=== PATIENT | female | born 1940 | race Caucasian/White ===

== ENCOUNTER 2020-07-04 16:15 | Emergency (ER) | payer OTHER ==
[2020-07-04 16:33] VITALS: BMI 29.2
[2020-07-04] MEDS ORDERED: BAMLANIVIMAB 700 MG in SODIUM CHLORIDE 250 ML IVPB ONE (16:36)
[2020-07-04 17:07] LABS: HEMATOCRIT 40.8 % (32.4-45.2); HEMOGLOBIN 13.7 GM/dL (10.7-15.3); MCH 31.3 pg (25.7-33.7); MCHC 33.6 g/dl (32.0-36.0); MEAN CELL VOLUME 93.1 fl (80-96); PLATELET COUNT 209 K/MM3 (134-434); RBC 4.38 M/mm3 (3.60-5.2); RDW 13.1 % (11.6-15.6); WHITE BLOOD COUNT 6.4 K/mm3 (4.0-10.0)
[2020-07-04 17:37] LABS: POTASSIUM 3.6 mmol/L (3.5-5.1)
[2020-07-04 17:38] LABS: CALCIUM 9.3 mg/dL (8.5-10.1)
[2020-07-04 17:39] LABS: BLOOD UREA NITROGEN 25.2 mg/dL (7-18)
[2020-07-04 17:42] LABS: CREATININE 1.1 mg/dL (0.55-1.3)
[2020-07-04] MEDS ORDERED: SODIUM CHLORIDE 0.9% 500 ML INFUS.BAG IV ONE (18:12)
[2020-07-04 20:23] VITALS: BP 119/64; PULSE 76; TEMP 100.3
== END 2020-07-04 21:30 | disposition home or self-care (01) ==
LOC: JER 16:15
DX: U07.1 COVID-19 (principal)
CPT/HCPCS: 36415; 80048; 85027; 99285-25; M0239; Q0239

== ENCOUNTER 2022-07-24 22:15 | Inpatient (IN) | payer OTHER ==
[2022-07-24] MEDS ORDERED: SODIUM CHLORIDE 1,000 ML IV ONE ×2 (22:26→22:51)
[2022-07-24] MEDS ORDERED: morphine CARPU-JECT 2 MG/1 ML DISP.SYRIN IVPUSH ONE (22:26)
[2022-07-24 22:43] VITALS: BMI 31.2
[2022-07-24 22:47] LABS: HEMATOCRIT 39.5 % (32.4-45.2); HEMOGLOBIN 13.6 G/dL (10.7-15.3); MCH 31.9 pg (25.7-33.7); MCHC 34.4 g/dl (32.0-36.0); MEAN CELL VOLUME 92.9 fl (80-96); MEAN PLT VOLUME 7.4 fl (7.5-11.1); PLATELET COUNT 262.7 10^3/uL (134-434); RBC 4.25 10^6/uL (3.60-5.2); WHITE BLOOD COUNT 13.2 10^3/uL (4.0-10.8)
[2022-07-24] MEDS ORDERED: morphine SULFATE 4 MG/ML VIAL ONE (22:50)
[2022-07-24 23:04] LABS: ALBUMIN 4.3 g/dl (3.4-5.0); BILIRUBIN,TOTAL 0.7 mg/dl (0.2-1); CALCIUM 9.6 mg/dl (8.5-10); CREATININE 1.1 mg/dl (0.55-1.3); TOT PROT 8.2 g/dl (6.4-8.2)
[2022-07-24 23:07] LABS: EPITHELIAL CELLS FEW /hpf
[2022-07-25] MEDS ORDERED: morphine CARPU-JECT 4 MG/1 ML DISP.SYRIN IVPUSH ONE (00:57)
[2022-07-25] MEDS ORDERED: morphine SULFATE 4 MG/ML VIAL ONE (00:57)
[2022-07-25] MEDS ORDERED: ACETAMINOPHEN 1000 MG/100 ML BAG IVPB PRN (03:05)
[2022-07-25] MEDS: SODIUM CHLORIDE 1,000 ML IV SCH (07:37)
[2022-07-25] MEDS: INSULIN SLIDING SCALE (NOVOLOG) 1 VIAL SQ SCH ×4 (07:38→22:41)
[2022-07-25] MEDS ORDERED: PIPERACILLIN/TAZOB 3.375 GM 3.375 GM in DEXTROSE 5%-WATER - 50 ML IVPB ONE (17:22)
[2022-07-25] MEDS ORDERED: INSULIN (NOVOLOG) ASPART 100 UNITS/ML 10ML VIAL ONE (22:08)
[2022-07-26] MEDS: INSULIN SLIDING SCALE (NOVOLOG) 1 VIAL SQ SCH ×4 (03:17→22:51)
[2022-07-26] MEDS: SODIUM CHLORIDE 1,000 ML IV SCH (04:17)
[2022-07-26 09:00] LABS: BASO % 0.9 % (0-2.0); EOS % 4.4 % (0-4.5); HEMATOCRIT 34.8 % (32.4-45.2); HEMOGLOBIN 11.6 GM/dL (10.7-15.3); LYMPH % 27.1 % (8-40); MCH 30.2 pg (25.7-33.7); MCHC 33.4 g/dl (32.0-36.0); MEAN CELL VOLUME 90.5 fl (80-96); MEAN PLT VOLUME 7.4 fl (7.5-11.1); MONO % 9.2 % (3.8-10.2); NEUT % 58.4 % (42.8-82.8); PLATELET COUNT 237 10^3/uL (134-434); RBC 3.85 M/mm3 (3.60-5.2); RDW 13.4 % (11.6-15.6); WHITE BLOOD COUNT 6.2 K/mm3 (4.0-10.0)
[2022-07-26 09:10] LABS: INR 1.16 (0.83-1.09); PROTHROMBIN TIME (PATIENT) 13.4 SEC (9.7-13.0)
[2022-07-26 09:13] LABS: ACTIVATED PTT 27.1 SECONDS (25.2-36.5)
[2022-07-26 10:04] LABS: BLOOD UREA NITROGEN 17.1 mg/dL (7-18); CALCIUM 9.2 mg/dL (8.5-10.1); MAGNESIUM 1.7 mg/dL (1.8-2.4)
[2022-07-26 10:07] LABS: PHOSPHOROUS 2.6 mg/dL (2.5-4.9)
[2022-07-26 10:10] LABS: CREATININE 0.9 mg/dL (0.55-1.3)
[2022-07-26] MEDS ORDERED: MAGNESIUM SULF 50% (8.12 MEQ/2 ML-1 GM VIAL) IVPB ONE (12:03)
[2022-07-26] MEDS ORDERED: ACETAMINOPHEN 500 MG TABLET (FP) PO PRN (13:45)
[2022-07-26] MEDS ORDERED: INSULIN (NOVOLOG) ASPART 100 UNITS/ML 10ML VIAL ONE (22:09)
[2022-07-27] MEDS: INSULIN SLIDING SCALE (NOVOLOG) 1 VIAL SQ SCH ×3 (04:01→12:25)
[2022-07-27 08:03] LABS: BASO % 0.9 % (0-2.0); EOS % 5.8 % (0-4.5); HEMOGLOBIN 12.1 GM/dL (10.7-15.3); MCH 31.1 pg (25.7-33.7); MCHC 33.7 g/dl (32.0-36.0); MEAN CELL VOLUME 92.2 fl (80-96); MEAN PLT VOLUME 7.3 fl (7.5-11.1); MONO % 9.3 % (3.8-10.2); PLATELET COUNT 266 10^3/uL (134-434); RDW 12.9 % (11.6-15.6); WHITE BLOOD COUNT 6.3 K/mm3 (4.0-10.0)
[2022-07-27 08:21] LABS: ALBUMIN 3.6 g/dl (3.4-5.0); BLOOD UREA NITROGEN 11.6 mg/dL (7-18)
[2022-07-27 08:22] LABS: BILIRUBIN,TOTAL 0.7 mg/dL (0.2-1)
[2022-07-27 08:23] LABS: CALCIUM 9.4 mg/dL (8.5-10.1); TOT PROT 7.1 g/dl (6.4-8.2)
[2022-07-27 08:24] LABS: CREATININE 0.9 mg/dL (0.55-1.3)
[2022-07-27] MEDS: SODIUM CHLORIDE 1,000 ML IV SCH ×2 (10:11)
[2022-07-27 10:33] VITALS: TEMP 98
[2022-07-27 11:18] VITALS: BP 139/67; PULSE 73; RESP 20
== END 2022-07-27 13:29 | disposition home or self-care (01) | DRG 389 ==
LOC: FER 22:15 → J8W 07-25 05:25
PROVIDERS: ADMIT Internal Medicine; ATTEND Family Medicine
DX: K56.609 Unspecified intestinal obstruction, unspecified as to partial versus complete obstruction (principal); K43.0 Incisional hernia with obstruction, without gangrene; E11.9 Type 2 diabetes mellitus without complications; I10 Essential (primary) hypertension; I25.10 Atherosclerotic heart disease of native coronary artery without angina pectoris; D72.829 Elevated white blood cell count, unspecified; E78.00 Pure hypercholesterolemia, unspecified; I48.91 Unspecified atrial fibrillation; E66.8 Other obesity; Z68.30 Body mass index [BMI] 30.0-30.9, adult; Z96.651 Presence of right artificial knee joint; Z86.010 Personal history of colon polyps; Z85.3 Personal history of malignant neoplasm of breast
CPT/HCPCS: 0241U-QW; 36415; 71045-TC-FY; 74019-TC-FY; 74177-TC; 80048; 80053; 81003; 81015; 82962; 83735; 84100; 85025; 85027; 85610; 85730; 87081; 87086; 93005; 99285-25; Q9967

== ENCOUNTER 2023-01-31 22:35 | Inpatient (IN) | payer OTHER ==
[2023-01-31] MEDS ORDERED: ACETAMINOPHEN 1000 MG/100 ML BAG IVPB ONE (23:16)
[2023-01-31] MEDS ORDERED: SODIUM CHLORIDE 0.9% 500 ML INFUS.BAG IV ONE (23:16)
[2023-02-01] MEDS ORDERED: ACETAMINOPHEN INJECTION 100 ML IVPB ONE (00:26)
[2023-02-01 01:37] LABS: INR 1.17 (0.83-1.09); PROTHROMBIN TIME (PATIENT) 13.6 SEC (9.7-13.0)
[2023-02-01 01:38] LABS: POTASSIUM 4.7 mmol/L (3.5-5.1)
[2023-02-01 01:39] LABS: ACTIVATED PTT 29.8 SECONDS (25.2-36.5)
[2023-02-01 01:40] LABS: BLOOD UREA NITROGEN 32.3 mg/dL (7-18); CALCIUM 9.6 mg/dL (8.5-10.1)
[2023-02-01 01:44] LABS: CREATININE 1.2 mg/dL (0.55-1.3)
[2023-02-01 01:46] LABS: BILIRUBIN,TOTAL 0.4 mg/dL (0.2-1); TOT PROT 8.4 g/dl (6.4-8.2)
[2023-02-01 02:14] LABS: HEMATOCRIT 38.9 % (32.4-45.2); MCH 29.9 pg (25.7-33.7); MCHC 33.5 g/dl (32.0-36.0); MEAN CELL VOLUME 89.4 fl (80-96); MEAN PLT VOLUME 7.9 fl (7.5-11.1); PLATELET COUNT 276 10^3/uL (134-434); RBC 4.36 M/mm3 (3.60-5.2); RDW 13.5 % (11.6-15.6)
[2023-02-01] MEDS ORDERED: morphine CARPU-JECT 4 MG/1 ML DISP.SYRIN IVPUSH ONE (05:03)
[2023-02-01] MEDS ORDERED: morphine SULFATE 4 MG/ML VIAL ONE (05:24)
[2023-02-01] MEDS: DEXTROSE 5%-NORMAL SALINE 1,000 ML IV SCH (05:25)
[2023-02-01 05:48] VITALS: BMI 32.5
[2023-02-01 06:49] LABS: EPI CELLS 4 /uL (0-25.1); HYALINE CASTS 0 /uL (0-3.1); PH,URINE 5.5 (5.0-8.0); URINE APPEARANCE CLEAR; URINE BACTERIA 19 /uL (0-1359); URINE BILIRUBIN NEGATIVE (NEGATIVE); URINE COLOR YELLOW; URINE GLUCOSE (UA) NEGATIVE (NEGATIVE); URINE KETONE NEGATIVE (NEGATIVE); URINE LEUK ESTERASE NEGATIVE (NEGATIVE); URINE NITRITE NEGATIVE (NEGATIVE); URINE PROTEIN 1+ (NEGATIVE); URINE RBC 11 /uL (0-23.9); URINE UROBILINOGEN 0.2 mg/dL (0.2-1.0); URINE WBC 7 /uL (0-25.8)
[2023-02-01 08:27] LABS: BLOOD UREA NITROGEN 26.6 mg/dl (7-18); CALCIUM 9.5 mg/dl (8.5-10.1); POTASSIUM 3.9 mmol/L (3.5-5.1)
[2023-02-01] MEDS ORDERED: KETOROLAC TROMETHAMINE 15 MG/ML VIAL IVPUSH PRN (09:58)
[2023-02-01 10:24] LABS: BASO % 0.3 % (0-2.0); EOS % 0.2 % (0-4.5); HEMOGLOBIN 13.1 GM/dL (10.7-15.3); LYMPH % 11.1 % (8-40); MCH 30.5 pg (25.7-33.7); MCHC 33.7 g/dl (32.0-36.0); MEAN CELL VOLUME 90.4 fl (80-96); MEAN PLT VOLUME 7.7 fl (7.5-11.1); NEUT % 82.4 % (42.8-82.8); PLATELET COUNT 259 10^3/uL (134-434); RBC 4.31 M/mm3 (3.60-5.2); RDW 13.5 % (11.6-15.6); WHITE BLOOD COUNT 15.5 K/mm3 (4.0-10.0)
[2023-02-01] MEDS: PANTOPRAZOLE SODIUM 40 MG VIAL IVPUSH SCH (11:00)
[2023-02-01] MEDS: INSULIN SLIDING SCALE (NOVOLOG) 1 VIAL SQ SCH ×3 (11:15→21:48)
[2023-02-01] MEDS: ACETAMINOPHEN 1000 MG/100 ML BAG IVPB PRN (18:54)
[2023-02-02] MEDS: DEXTROSE 5%-NORMAL SALINE 1,000 ML IV SCH (06:14)
[2023-02-02] MEDS: INSULIN SLIDING SCALE (NOVOLOG) 1 VIAL SQ SCH ×3 (06:35→17:21)
[2023-02-02 09:21] LABS: ALBUMIN 3.8 g/dl (3.4-5.0); CALCIUM 9.1 mg/dl (8.5-10.1); CREATININE 1.3 mg/dl (0.6-1.3); SGOT/AST 21.5 U/L (15-37); SGPT/ALT 10.6 U/L (7-52); TOT PROT 6.5 g/dl (6.4-8.2)
[2023-02-02 09:24] LABS: BASO % 0.5 % (0-2.0); HEMATOCRIT 35.4 % (32.4-45.2); HEMOGLOBIN 12.1 GM/dL (10.7-15.3); LYMPH % 25.8 % (8-40); MCH 30.9 pg (25.7-33.7); MCHC 34.2 g/dl (32.0-36.0); MEAN CELL VOLUME 90.2 fl (80-96); MEAN PLT VOLUME 7.4 fl (7.5-11.1); MONO % 8.6 % (3.8-10.2); NEUT % 62.1 % (42.8-82.8); PLATELET COUNT 233 10^3/uL (134-434); RBC 3.93 M/mm3 (3.60-5.2); RDW 13.1 % (11.6-15.6); WHITE BLOOD COUNT 7.8 K/mm3 (4.0-10.0)
[2023-02-02] MEDS: PANTOPRAZOLE SODIUM 40 MG VIAL IVPUSH SCH (10:12)
[2023-02-02] MEDS: ACETAMINOPHEN 1000 MG/100 ML BAG IVPB PRN (10:28)
[2023-02-02] MEDS ORDERED: DEXTROSE 5%-LACTATED RINGERS 1,000 ML IV SCH ×2 (10:45)
[2023-02-02 10:55] LABS: BILIRUBIN,TOTAL 0.9 mg/dL (0.2-1)
[2023-02-02 14:55] VITALS: BP 153/69; PULSE 68; RESP 18; TEMP 98.8
== END 2023-02-02 19:12 | disposition home or self-care (01) | DRG 390 ==
LOC: FER 22:35 → FM/S 02-01 04:57
PROVIDERS: ADMIT Family Medicine; ATTEND Family Medicine
DX: K56.609 Unspecified intestinal obstruction, unspecified as to partial versus complete obstruction (principal); E11.9 Type 2 diabetes mellitus without complications; I10 Essential (primary) hypertension; E86.0 Dehydration; J45.909 Unspecified asthma, uncomplicated; Z88.1 Allergy status to other antibiotic agents; R10.9 Unspecified abdominal pain; R79.89 Other specified abnormal findings of blood chemistry
CPT/HCPCS: 36415; 71045-TC-FY; 74018-TC-FY; 74177-TC; 80048; 80053; 81003; 82962; 83605; 83690; 85025; 85027; 85610; 85730; 86850; 86900; 86901; 87040; 93005; 97116-GP; 97161-GP; 99285-25; Q9967

== ENCOUNTER 2023-02-20 03:54 | Day surgery (SDC) | payer OTHER ==
[2023-02-19 12:46] VITALS: BMI 28.3
[2023-02-20] MEDS ORDERED: BOTULINUM TOXIN A 100 UNITS VIAL NR ONE (09:30)
[2023-02-20 10:24] VITALS: BP 133/63; PULSE 56; RESP 18; TEMP 98.5
[2023-02-20] MEDS ORDERED: ONABOTULINUMTOXINA 200 UNIT/VIAL VIAL NR ONE (11:45)
[2023-02-20] MEDS ORDERED: LIDOCAINE HCL/PF 2% SDV 5ML VIAL ONE (12:26)
[2023-02-20] MEDS ORDERED: MIDAZOLAM HCL 2 MG/2 ML SINGLE DOSE VIAL ONE (12:27)
[2023-02-20] MEDS ORDERED: PROPOFOL 20 ML ONE (12:27)
== END 2023-02-20 13:35 | disposition home or self-care (01) ==
LOC: JASU-SURG 03:54
PROVIDERS: ATTEND Surgery
DX: Z30.2 Encounter for sterilization (principal)
CPT/HCPCS: 82962; 96365

== ENCOUNTER → 2023-02-22 | Day surgery (SDC) | payer OTHER ==
[2023-02-20 15:41] VITALS: BMI 37.5
[~2023-02-22] MED LIST: MIDAZOLAM HCL 2 MG/2 ML SINGLE DOSE VIAL ONE; ONABOTULINUMTOXINA 200 UNIT/VIAL VIAL IM ONE; ONDANSETRON 4 MG/2 ML VIAL ONE; PROPOFOL 20 ML ONE; SODIUM CHLORIDE 0.9% P/F 10 ML VIAL IJ ONE
[2023-02-22 15:19] VITALS: RESP 18
[2023-02-22 16:09] VITALS: BP 130/65; PULSE 64; TEMP 97.3
== END | disposition home or self-care (01) ==
LOC: JASU-SURG 04:49
PROVIDERS: ATTEND Surgery
PROC: 3E023GC Introduction of Other Therapeutic Substance into Muscle, Percutaneous Approach (ICD-10-PCS; principal; 2023-02-22 15:00)
DX: K43.9 Ventral hernia without obstruction or gangrene (principal)
CPT/HCPCS: 82962; J0585

== ENCOUNTER 2023-03-27 04:21 | Inpatient (IN) | payer OTHER ==
[2023-03-27] MEDS ORDERED: BUPIVACAINE HCL/PF 0.25% (2.5MG/ML) 10 ML VIAL ONE (12:54)
[2023-03-27] MEDS ORDERED: ROPIVACAINE HCL 0.5% 30ML VIAL ONE (13:02)
[2023-03-27] MEDS ORDERED: MIDAZOLAM HCL 2 MG/2 ML SINGLE DOSE VIAL ONE (13:36)
[2023-03-27] MEDS ORDERED: FENTANYL CITRATE/PF 50 MCG/ML VIAL ONE ×2 (14:42→16:05)
[2023-03-27] MEDS ORDERED: LIDOCAINE HCL/PF 2% SDV 5ML VIAL ONE (14:42)
[2023-03-27] MEDS ORDERED: ROCURONIUM BROMIDE 50 MG/5 ML SYRINGE ONE ×3 (14:43→18:49)
[2023-03-27] MEDS ORDERED: PROPOFOL 20 ML ONE ×2 (14:43→19:33)
[2023-03-27] MEDS ORDERED: ceFAZolin SODIUM 1 GM VIAL ONE ×2 (14:51→19:14)
[2023-03-27] MEDS ORDERED: ceFAZolin SODIUM 1 GM VIAL IVPB ONE (14:58)
[2023-03-27] MEDS ORDERED: ONDANSETRON 4 MG/2 ML VIAL ONE ×2 (15:00→18:09)
[2023-03-27] MEDS ORDERED: DEXAMETHASONE SOD PHOSPHATE 4 MG/1 ML VIAL ONE ×2 (15:00→16:47)
[2023-03-27] MEDS ORDERED: ePHEDrine SULFATE 50 MG/1 ML AMPULE ONE (15:13)
[2023-03-27] MEDS ORDERED: SUGAMMADEX SODIUM 200 MG/2 ML VIAL ONE (16:36)
[2023-03-27] MEDS ORDERED: HYDROmorphone HCl 2 MG/ML VIAL ONE (16:49)
[2023-03-27] MEDS ORDERED: SEVOFLURANE 250 ML BTL ONE (17:30)
[2023-03-27] MEDS ORDERED: KETOROLAC TROMETHAMINE 30 MG/1 ML VIAL ONE (18:09)
[2023-03-27] MEDS ORDERED: PROMETHAZINE HCL 25 MG/1 ML VIAL IVPB PRN (18:43)
[2023-03-27] MEDS ORDERED: ONDANSETRON 4 MG/2 ML VIAL IVPUSH PRN ×3 (18:43→21:05)
[2023-03-27] MEDS ORDERED: LACTATED RINGERS SOLUTION 1,000 ML IV SCH (18:45)
[2023-03-27] MEDS ORDERED: HYDROmorphone *PCA* 10MG/50ML DISP.SYRIN PCA SCH (18:45)
[2023-03-27] MEDS ORDERED: BUPIVACAINE HCL/PF 0.25% (2.5MG/ML) 10 ML VIAL IJ ONE (19:52)
[2023-03-27] MEDS: HYDROmorphone *PCA* 10MG/50ML DISP.SYRIN PCA SCH (21:05)
[2023-03-27] MEDS ORDERED: HEPARIN NA (PORCINE) 5,000 UNITS/ML 1ML VIAL ONE (21:13)
[2023-03-27] MEDS ORDERED: HYDROmorphone *PCA* 10MG/50ML DISP.SYRIN ONE (21:14)
[2023-03-27] MEDS: HEPARIN NA (PORCINE) 5,000 UNITS/ML 1ML VIAL SQ SCH ×2 (22:09→22:22)
[2023-03-27] MEDS: ELECTROLYTE-148 SOLN 1,000 ML IV SCH (22:10)
[2023-03-28] MEDS ORDERED: ACETAMINOPHEN 1000 MG/100 ML BAG IVPB PRN (00:14)
[2023-03-28 01:45] VITALS: BMI 27.9
[2023-03-28] MEDS: INSULIN SLIDING SCALE (NOVOLOG) 1 VIAL SQ SCH ×3 (02:07→17:00)
[2023-03-28] MEDS: CEFOXITIN SODIUM 2 GM in DEXTROSE 5%-WATER 100 ML IVPB SCH ×3 (02:43→17:05)
[2023-03-28 08:25] LABS: POTASSIUM 4.5 mmol/L (3.5-5.1)
[2023-03-28 08:26] LABS: BASO % 0.1 % (0-2.0); HEMOGLOBIN 9.6 GM/dL (10.7-15.3); LYMPH % 13.7 % (8-40); MCH 31.4 pg (25.7-33.7); MCHC 34.2 g/dl (32.0-36.0); MEAN CELL VOLUME 91.8 fl (80-96); MEAN PLT VOLUME 7.4 fl (7.5-11.1); NEUT % 76.2 % (42.8-82.8); PLATELET COUNT 222 10^3/uL (134-434); RBC 3.05 M/mm3 (3.60-5.2); RDW 13.1 % (11.6-15.6); WHITE BLOOD COUNT 9.1 K/mm3 (4.0-10.0)
[2023-03-28 08:29] LABS: BLOOD UREA NITROGEN 28.7 mg/dL (7-18)
[2023-03-28 08:30] LABS: CALCIUM 8.2 mg/dL (8.5-10.1); MAGNESIUM 1.8 mg/dL (1.8-2.4)
[2023-03-28 08:32] LABS: CREATININE 1.4 mg/dL (0.55-1.3); PHOSPHOROUS 3.3 mg/dL (2.5-4.9)
[2023-03-28] MEDS: HEPARIN NA (PORCINE) 5,000 UNITS/ML 1ML VIAL SQ SCH ×2 (09:56→21:13)
[2023-03-28] MEDS: FAMOTIDINE 20 MG/50 ML IVPB 20 MG/50 ML MG IVPB SCH (09:56)
[2023-03-28] MEDS: ELECTROLYTE-148 SOLN 1,000 ML IV SCH (09:57)
[2023-03-28] MEDS: metoPROLOL SUCCINATE 25 MG TAB.SR.24H (FP) PO SCH ×2 (09:57→21:09)
[2023-03-28] MEDS ORDERED: LOSARTAN POTASSIUM 50 MG TABLET PO SCH (10:00)
[2023-03-28] MEDS ORDERED: CHLORTHALIDONE 25 MG TABLET PO SCH (10:00)
[2023-03-28] MEDS: LOSARTAN POTASSIUM 50 MG TABLET PO SCH (11:28)
[2023-03-28] MEDS: CHLORTHALIDONE 25 MG TABLET PO SCH (11:28)
[2023-03-28] MEDS: ACETAMINOPHEN 1000 MG/100 ML BAG IVPB SCH ×2 (12:36→21:12)
[2023-03-28] MEDS ORDERED: BENZOCAINE/MENTH/CETYLPYRD CL 1 EACH LOZENGE MM PRN (13:03)
[2023-03-28] MEDS ORDERED: diphenhydrAMINE HCL 25 MG CAPSULE (FP) PO ONE (15:08)
[2023-03-29] MEDS ORDERED: CEFOXITIN SODIUM 2 GM in DEXTROSE 5%-WATER 100 ML IVPB SCH (02:00)
[2023-03-29] MEDS: CEFOXITIN SODIUM 2 GM in DEXTROSE 5%-WATER 100 ML IVPB SCH ×3 (03:15→17:03)
[2023-03-29] MEDS: ACETAMINOPHEN 1000 MG/100 ML BAG IVPB SCH (03:15)
[2023-03-29 07:44] LABS: HEMATOCRIT 25.6 % (32.4-45.2); HEMOGLOBIN 8.5 GM/dL (10.7-15.3); RBC 2.73 M/mm3 (3.60-5.2); WHITE BLOOD COUNT 8.1 K/mm3 (4.0-10.0)
[2023-03-29 07:45] LABS: BASO % 0.7 % (0-2.0); EOS % 1.2 % (0-4.5); MEAN PLT VOLUME 7.3 fl (7.5-11.1); MONO % 8.1 % (3.8-10.2); PLATELET COUNT 201 10^3/uL (134-434); RDW 13.2 % (11.6-15.6)
[2023-03-29 07:47] LABS: POTASSIUM 3.7 mmol/L (3.5-5.1)
[2023-03-29 07:56] LABS: BLOOD UREA NITROGEN 19.8 mg/dL (7-18)
[2023-03-29] MEDS: INSULIN SLIDING SCALE (NOVOLOG) 1 VIAL SQ SCH ×4 (08:19→17:10)
[2023-03-29] MEDS: HYDROmorphone *PCA* 10MG/50ML DISP.SYRIN PCA SCH (08:20)
[2023-03-29] MEDS: LOSARTAN POTASSIUM 50 MG TABLET PO SCH (09:14)
[2023-03-29] MEDS: FAMOTIDINE 20 MG/50 ML IVPB 20 MG/50 ML MG IVPB SCH (09:14)
[2023-03-29] MEDS: CHLORTHALIDONE 25 MG TABLET PO SCH (09:15)
[2023-03-29] MEDS: HEPARIN NA (PORCINE) 5,000 UNITS/ML 1ML VIAL SQ SCH ×2 (09:15→21:04)
[2023-03-29] MEDS: metoPROLOL SUCCINATE 25 MG TAB.SR.24H (FP) PO SCH ×2 (09:16→21:04)
[2023-03-29] MEDS ORDERED: ACETAMINOPHEN 500 MG TABLET (FP) PO PRN (12:00)
[2023-03-29] MEDS ORDERED: IRON SUCROSE INJECTION 200 MG in SODIUM CHLORIDE 90 ML IVPB ONE (18:00)
[2023-03-30] MEDS: HYDROmorphone *PCA* 10MG/50ML DISP.SYRIN PCA SCH (05:42)
[2023-03-30] MEDS: INSULIN SLIDING SCALE (NOVOLOG) 1 VIAL SQ SCH ×2 (06:17→10:29)
[2023-03-30 07:28] LABS: HEMATOCRIT 30.7 % (32.4-45.2); MCH 30.2 pg (25.7-33.7); MCHC 32.4 g/dl (32.0-36.0); MEAN CELL VOLUME 93.1 fl (80-96); MEAN PLT VOLUME 7.7 fl (7.5-11.1); PLATELET COUNT 277 10^3/uL (134-434); WHITE BLOOD COUNT 9.1 K/mm3 (4.0-10.0)
[2023-03-30 08:07] LABS: POTASSIUM 3.8 mmol/L (3.5-5.1)
[2023-03-30 08:18] LABS: CALCIUM 8.8 mg/dL (8.5-10.1)
[2023-03-30] MEDS: FAMOTIDINE 20 MG/50 ML IVPB 20 MG/50 ML MG IVPB SCH (08:18)
[2023-03-30 08:19] LABS: BLOOD UREA NITROGEN 12.5 mg/dL (7-18)
[2023-03-30 08:22] LABS: CREATININE 0.9 mg/dL (0.55-1.3)
[2023-03-30] MEDS: LOSARTAN POTASSIUM 50 MG TABLET PO SCH (10:12)
[2023-03-30] MEDS: metoPROLOL SUCCINATE 25 MG TAB.SR.24H (FP) PO SCH (10:12)
[2023-03-30] MEDS: CHLORTHALIDONE 25 MG TABLET PO SCH (10:15)
[2023-03-30] MEDS: HEPARIN NA (PORCINE) 5,000 UNITS/ML 1ML VIAL SQ SCH (10:15)
[2023-03-30 10:38] VITALS: TEMP 98.5
[2023-03-30 12:22] VITALS: BP 119/79; PULSE 83; RESP 21
== END 2023-03-30 13:40 | disposition home or self-care (01) | DRG 355 ==
LOC: JASU-SURG 04:21 → J2W 22:06 → JASU-SURG 22:07 → J2W 03-29 08:27
PROVIDERS: ADMIT Family Medicine; ATTEND Family Medicine
PROC: 0KNL0ZZ Release Left Abdomen Muscle, Open Approach (ICD-10-PCS; 2023-03-27)
PROC: 0WUF0JZ Supplement Abdominal Wall with Synthetic Substitute, Open Approach (ICD-10-PCS; 2023-03-27)
PROC: 0KNK0ZZ Release Right Abdomen Muscle, Open Approach (ICD-10-PCS; 2023-03-27)
PROC: 0WQF0ZZ Repair Abdominal Wall, Open Approach (ICD-10-PCS; principal; 2023-03-27 12:00)
DX: K43.9 Ventral hernia without obstruction or gangrene (principal); K66.0 Peritoneal adhesions (postprocedural) (postinfection); I10 Essential (primary) hypertension; J45.909 Unspecified asthma, uncomplicated; E11.9 Type 2 diabetes mellitus without complications; I48.91 Unspecified atrial fibrillation
CPT/HCPCS: 36415; 80048; 82962; 83540; 83550; 83735; 84100; 85025; 85027; 94010; 94760; 97116-GP; 97162-GP; C1718; J1644; J1756